=== PATIENT | female | born 1995 | race Caucasian/White ===

== ENCOUNTER 2016-06-03 21:20 | Emergency (ER) | payer MEDICAID | END 2016-06-03 23:47 | disposition home or self-care (01) | LOC: D.ER 21:20 | DX: S80.01XA Contusion of right knee, initial encounter (principal); W19.XXXA Unspecified fall, initial encounter; Y93.89 Activity, other specified; Y92.019 Unspecified place in single-family (private) house as the place of occurrence of the external cause; F41.9 Anxiety disorder, unspecified ==

== ENCOUNTER 2016-12-03 14:00 | Emergency (ER) | payer MEDICAID | END 2016-12-03 16:41 | disposition home or self-care (01) | LOC: D.ER 14:00 | DX: J06.9 Acute upper respiratory infection, unspecified (principal); J01.90 Acute sinusitis, unspecified; F17.200 Nicotine dependence, unspecified, uncomplicated ==

== ENCOUNTER 2017-02-26 01:51 | Emergency (ER) | payer MEDICAID | END 2017-02-26 03:06 | disposition home or self-care (01) | LOC: D.ER 01:51 | DX: J02.9 Acute pharyngitis, unspecified (principal) ==

== ENCOUNTER 2017-03-09 15:02 | Emergency (ER) | payer MEDICAID ==
[2017-03-09 19:38] LABS: HCG URINE NEGATIVE (NEGATIVE)
== END 2017-03-09 19:57 | disposition home or self-care (01) ==
LOC: D.ER 15:02
PROVIDERS: Family Medicine
DX: J01.90 Acute sinusitis, unspecified (principal)

== ENCOUNTER 2017-05-03 12:25 | Emergency (ER) | payer MEDICAID | END 2017-05-03 14:42 | disposition home or self-care (01) | LOC: D.ER 12:25 | DX: S93.402A Sprain of unspecified ligament of left ankle, initial encounter (principal); X58.XXXA Exposure to other specified factors, initial encounter; Y93.89 Activity, other specified; Y92.019 Unspecified place in single-family (private) house as the place of occurrence of the external cause ==

== ENCOUNTER 2017-05-24 19:39 | Emergency (ER) | payer MEDICAID | END 2017-05-24 21:00 | disposition home or self-care (01) | LOC: D.ER 19:39 | DX: L03.011 Cellulitis of right finger (principal) ==

== ENCOUNTER 2017-07-08 12:08 | Emergency (ER) | payer MEDICAID ==
[2017-07-08 12:42] LABS: BASOPHILS 0.4 % (0-2); EOSINOPHILS 2.2 % (0-7); HEMATOCRIT 38.1 % (36.0-48.0); HEMOGLOBIN 12.5 g/dL (12-16); IMMATURE GRANULOCYTES 0.2 % (0-5); LYMPHOCYTES 27.9 % (15-50); MCH 28.7 pg (26.0-34.0); MCHC 32.8 g/dL (31.0-37.0); MCV 87.6 fL (80.0-100.0); MEAN PLATELET VOLUME 9.9 fL (7.4-10.4); MONOCYTES 6.9 % (2-11); NEUTROPHILS 62.4 % (40-80); PLATELET COUNT 251 10x3/uL (130-400); RBC 4.35 10x6/uL (4.00-5.40); RDW 13.1 % (11.5-14.5); WBC 9.1 10x3/uL (4.8-10.8)
[2017-07-08 12:47] LABS: APPEARANCE HAZY (CLEAR); BILIRUBIN NEGATIVE (NEGATIVE); COLOR YELLOW (YELLOW); GLUCOSE NEGATIVE (NEGATIVE); KETONE NEGATIVE (NEGATIVE); NITRITE NEGATIVE (NEGATIVE); PROTEIN NEGATIVE (NEGATIVE); SPECIFIC GRAVITY 1.015 (1.005-1.020); UROBILINOGEN NORMAL (NORMAL)
[2017-07-08 12:52] LABS: RED CELLS - URINE OCC /hpf (0-5); WHITE CELLS - URINE 0-5 /hpf (0-5)
[2017-07-08 12:53] LABS: AMORPHOUS SEDIMENT <1+ /lpf (NONE SEEN); BACTERIA MODERATE /hpf (NONE SEEN); MUCUS <1+ /lpf (NONE SEEN)
[2017-07-08 13:03] LABS: ALBUMIN 3.2 g/dL (3.4-5.0); ALKALINE PHOSPHATASE 70 U/L (46-116); ALT (SGPT) 22 U/L (10-68); CALC OSMOLALITY 275 mosm/kg (275-300); CALCIUM 9.2 mg/dL (8.5-10.1); CARBON DIOXIDE 27.3 mmol/L (21.0-32.0); CHLORIDE - SERUM 106 mmol/L (98-107); CREATININE - SERUM 0.7 mg/dL (0.6-1.3); GLUCOSE 90 mg/dL (74-106); POTASSIUM - SERUM 3.7 mmol/L (3.5-5.1); PROTEIN - SERUM 8.1 g/dL (6.4-8.2); SODIUM 138 mmol/L (136-145); UREA NITROGEN 13 mg/dL (7-18); eGFR NON AFRICAN AMERICAN > 90 mL/min (90-120)
[2017-07-08 13:21] LABS: HCG SERUM NEGATIVE (NEGATIVE)
[2017-07-11 22:12] LABS: CHLAMYDIA TRACHOMATIS, NAA Negative (Negative)
== END 2017-07-08 16:19 | disposition home or self-care (01) ==
LOC: D.ER 12:08
PROVIDERS: Emergency Medicine; Physician Assistant
DX: R10.2 Pelvic and perineal pain (principal); N93.9 Abnormal uterine and vaginal bleeding, unspecified; A59.9 Trichomoniasis, unspecified

== ENCOUNTER 2017-09-26 21:33 | Emergency (ER) | payer SELFPAY ==
[~2017-09-26] VITALS: Ht 167.6 cm; Wt 125.0 kg
[2017-09-26 21:41] VITALS: Ht 167.6 cm; Wt 125.0 kg
[2017-09-26] MEDS ORDERED: GABAPENTIN100 MG (21:43)
[2017-09-26] MEDS ORDERED: ULTRACET TABLET1 TAB PO (22:48)
[2017-09-27 02:55] VITALS: BP 121/82
== END 2017-09-26 23:28 | disposition home or self-care (01) ==
LOC: D.ER 21:33
DX: M25.561 Pain in right knee (principal)

== ENCOUNTER 2018-02-18 12:16 | Emergency (ER) | payer SELFPAY ==
[~2018-02-18] VITALS: Ht 167.6 cm; Wt 117.9 kg
[~2018-02-18 12:16] MED LIST: GABAPENTIN100 MG; ULTRACET TABLET1 TAB PO
[2018-02-18 12:31] VITALS: BP 125/93; Ht 167.6 cm; Wt 117.9 kg
[2018-02-18] MEDS ORDERED: FLUTICASONE PRO16 GM NASAL (15:44)
[2018-02-18] MEDS ORDERED: MUCINEX DM ER1 EAC1 PO (15:44)
== END 2018-02-18 15:56 | disposition home or self-care (01) ==
LOC: D.ER 12:16
DX: J00 Acute nasopharyngitis [common cold] (principal)

== ENCOUNTER 2018-02-24 19:05 | Emergency (ER) | payer SELFPAY ==
[~2018-02-24] VITALS: Ht 167.6 cm; Wt 118.2 kg
[~2018-02-24 19:05] MED LIST changes: +FLUTICASONE PRO16 GM NASAL; +MUCINEX DM ER1 EAC1 PO
[2018-02-24 19:12] VITALS: Ht 167.6 cm; Wt 118.2 kg
[2018-02-24 21:47] VITALS: BP 147/89
== END 2018-02-24 21:48 | disposition home or self-care (01) ==
LOC: D.ER 19:05
DX: J02.0 Streptococcal pharyngitis (principal); R05 Cough

== ENCOUNTER 2018-05-03 10:34 | Emergency (ER) | payer MEDICAID ==
[~2018-05-03] VITALS: Ht 167.6 cm; Wt 113.4 kg
[2018-05-03 10:46] VITALS: Ht 167.6 cm; Wt 113.4 kg
[2018-05-03] MEDS ORDERED: VOLTAREN75 MG PO (13:58)
[2018-05-03] MEDS ORDERED: KEFLEX500 MG PO (13:58)
[2018-05-03 14:16] VITALS: BP 128/64
== END 2018-05-03 14:17 | disposition home or self-care (01) ==
LOC: D.ER 10:34
DX: S99.921A Unspecified injury of right foot, initial encounter (principal); W20.8XXA Other cause of strike by thrown, projected or falling object, initial encounter; Y93.89 Activity, other specified; Y92.019 Unspecified place in single-family (private) house as the place of occurrence of the external cause; L03.031 Cellulitis of right toe

== ENCOUNTER 2018-06-07 13:33 | Emergency (ER) | payer MEDICAID ==
[~2018-06-07 13:33] MED LIST changes: +KEFLEX500 MG PO; +VOLTAREN75 MG PO
[2018-06-07] MEDS ORDERED: VOLTAREN75 MG PO (15:50)
== END 2018-06-07 16:17 | disposition home or self-care (01) ==
LOC: D.ER 13:33
DX: M79.644 Pain in right finger(s) (principal)

== ENCOUNTER 2018-11-28 18:20 | Emergency (ER) | payer MEDICAID ==
[~2018-11-28] VITALS: Ht 167.6 cm; Wt 112.7 kg
[2018-11-28 18:46] VITALS: Ht 167.6 cm; Wt 112.7 kg
[2018-11-28 22:25] VITALS: BP 1155/92
== END 2018-11-28 22:27 | disposition home or self-care (01) ==
LOC: D.ER 18:20
DX: J02.0 Streptococcal pharyngitis (principal)

== ENCOUNTER 2019-02-01 04:32 | Emergency (ER) | payer SELFPAY ==
[~2019-02-01] VITALS: Ht 167.6 cm; Wt 113.4 kg
[2019-02-01 04:36] VITALS: Ht 167.6 cm; Wt 113.4 kg
[2019-02-01] MEDS ORDERED: KEFLEX500 MG PO (04:56)
[2019-02-01] MEDS ORDERED: HYDROCODON-ACE1 EAC7 PO (04:57)
[2019-02-01 05:18] VITALS: BP 144/76
== END 2019-02-01 05:18 | disposition home or self-care (01) ==
LOC: D.ER 04:32
DX: J02.9 Acute pharyngitis, unspecified (principal); R09.89 Other specified symptoms and signs involving the circulatory and respiratory systems; R05 Cough

== ENCOUNTER 2019-02-08 21:48 | Emergency (ER) | payer SELFPAY ==
[~2019-02-08] VITALS: Ht 167.6 cm; Wt 136.4 kg
[~2019-02-08 21:48] MED LIST changes: +HYDROCODON-ACE1 EAC7 PO
[2019-02-08 21:51] VITALS: Ht 167.6 cm; Wt 136.4 kg
[2019-02-08] MEDS ORDERED: ALBUTEROL SULF8.5 GM INH (22:29)
[2019-02-08 23:00] VITALS: BP 142/91
== END 2019-02-08 23:00 | disposition home or self-care (01) ==
LOC: D.ER 21:48
DX: J06.9 Acute upper respiratory infection, unspecified (principal); J20.9 Acute bronchitis, unspecified

== ENCOUNTER 2019-11-04 03:02 | Emergency (ER) | payer SELFPAY ==
[~2019-11-04] VITALS: Ht 167.6 cm; Wt 113.6 kg
[~2019-11-04 03:02] MED LIST changes: +ALBUTEROL SULF8.5 GM INH
[2019-11-04 03:13] VITALS: Ht 167.6 cm; Wt 113.6 kg
[2019-11-04 03:37] LABS: BASOPHILS 0.9 % (0-2); EOSINOPHILS 2.4 % (0-7); HEMATOCRIT 39.7 % (36.0-48.0); HEMOGLOBIN 12.8 g/dL (12-16); IMMATURE GRANULOCYTES 0.3 % (0-5); LYMPHOCYTES 24.7 % (15-50); MCHC 32.2 g/dL (31.0-37.0); MCV 86.9 fL (80.0-100.0); MEAN PLATELET VOLUME 9.8 fL (7.4-10.4); MONOCYTES 7.9 % (2-11); NEUTROPHILS 63.8 % (40-80); PLATELET COUNT 274 10x3/uL (130-400); RBC 4.57 10x6/uL (4.00-5.40); RDW 13.8 % (11.5-14.5); WBC 10.4 10x3/uL (4.8-10.8)
[2019-11-04 03:50] LABS: CALC OSMOLALITY 281 mosm/kg (275-300); CALCIUM 8.8 mg/dL (8.5-10.1); CARBON DIOXIDE 29.8 mmol/L (21.0-32.0); CHLORIDE - SERUM 105 mmol/L (98-107); CREATININE - SERUM 0.8 mg/dL (0.6-1.3); GLUCOSE 106 mg/dL (74-106); POTASSIUM - SERUM 3.4 mmol/L (3.5-5.1); SODIUM 142 mmol/L (136-145); UREA NITROGEN 9 mg/dL (7-18); eGFR NON AFRICAN AMERICAN > 90 mL/min (90-120)
[2019-11-04 03:52] LABS: HCG URINE NEGATIVE (NEGATIVE)
[2019-11-04 03:59] LABS: ALBUMIN 3.1 g/dL (3.4-5.0); ALKALINE PHOSPHATASE 78 U/L (30-120); ALT (SGPT) 22 U/L (10-68); AMYLASE - SERUM 37 U/L (25-115); BILIRUBIN - TOTAL 0.35 mg/dL (0.2-1.3); LIPASE 146 U/L (73-393); PROTEIN - SERUM 8.1 g/dL (6.4-8.2)
[2019-11-04 04:00] LABS: TROPONIN-I < 0.017 ng/mL (0.000-0.060)
[2019-11-04 04:03] LABS: BILIRUBIN NEGATIVE (NEGATIVE); KETONE NEGATIVE (NEGATIVE); NITRITE NEGATIVE (NEGATIVE); UROBILINOGEN NORMAL (NORMAL)
[2019-11-04 04:04] LABS: BACTERIA FEW /hpf (NONE SEEN); EPITHELIAL CELLS 0-5 /hpf (0-5); WHITE CELLS - URINE 0-5 /hpf (0-5)
[2019-11-04] MEDS ORDERED: CARAFATE1 G PO (04:23)
[2019-11-04] MEDS ORDERED: PROTONIX40 MG PO (04:23)
[2019-11-04 04:29] VITALS: BP 134/72
== END 2019-11-04 04:29 | disposition home or self-care (01) ==
LOC: D.ER 03:02
PROVIDERS: Family Medicine
DX: K29.70 Gastritis, unspecified, without bleeding (principal); R10.13 Epigastric pain